=== PATIENT | female | born 1975 | race Caucasian/White ===

== ENCOUNTER → 2016-03-14 | Outpatient (CLI) | payer OTHER ==
--- NOTE | 2016-03-15 09:07 | US ---
EXAMINATION TYPE: US pelvic complete DATE OF EXAM: 03/14/2016 6:31 PM COMPARISON: NONE CLINICAL HISTORY: Irreg menses, mass on UT removed in 2009. TECHNIQUE: Transabdominal (TA) Date of LMP: 03/09/2016, EXAM MEASUREMENTS: Uterus: 8.1 x 4.3 x 3.6 cm Endometrial Stripe: 0.8 cm Right Ovary: 2.6 x 2.1 x 1.5 cm Left Ovary: 2.1 x 1.6 x 1.1 cm FINDINGS: 1. Uterus: wnl, anteverted 2. Endometrium: wnl 3. Right Ovary: follicle 4. Left Ovary: wnl Spectral, color and waveform doppler imaging shows good arterial and venous flow within the ovaries ; there is no evidence for ovarian torsion. 5. Bilateral Adnexa: wnl 6. Posterior cul-de-sac: no free fluid IMPRESSION: 1. Endometrial stripe measures 8 mm correlate with the phase of the patient's menstrual cycle. Otherw ise, no abnormality identified.
== END | disposition home or self-care (01) ==
LOC: RADUSMAIN 17:55
PROVIDERS: ATTEND Obstetrics & Gynecology
DX: N92.1 Excessive and frequent menstruation with irregular cycle (principal)
CPT/HCPCS: 76856

== ENCOUNTER 2016-09-14 11:06 | Emergency (ER) | payer OTHER ==
[2016-09-14 11:14] VITALS: TEMP 97.3
[2016-09-14] MEDS ORDERED: SODIUM CHLORIDE 0.9% 1,000 ML IV STA ×2 (11:27)
--- NOTE | 2016-09-14 11:33 | ED ---
General Adult HPI - General Chief complaint: Extremity Injury, Upper Stated complaint: ELECTROCUTION Time Seen by Provider: 09/14/16 11:19 Source: patient Mode of arrival: ambulatory Limitations: no limitations - History of Present Illness Initial comments: This 41-year-old white female presents complaining of getting an electrical shock. She apparently was part washing her deck and she was near the area where the extension cord. She apparently was pulling on this area and also touching the metal deck when she felt a shock go through her right arm and it seemed to go all the way to her left arm. She had a numbness and tingling type sensation afterward. This occurred at approximately 10 AM today. She did not lose any consciousness, exhibit any chest pain, shortness of breath, or palpitations. She complains of some mild soreness present to her right proximal arm currently. She does not think she is but is somewhat late on her menstruation. She denies any other complaints or modifying factors. - Related Data Home Medications Medication Instructions Recorded Confirmed No Known Home Medications [No 09/14/16 09/14/16 Known Home Medications] Allergies Allergy/AdvReac Type Severity Reaction Status Date / Time cephalexin [From Keflex] Allergy Unknown Verified 09/14/16 11:46 ofloxacin Allergy Unknown Verified 09/14/16 11:46 Sulfa (Sulfonamide Allergy Unknown Verified 09/14/16 11:46 Antibiotics) sulfamethoxazole Allergy Unknown Verified 09/14/16 11:46 [From Bactrim] trimethoprim [From Bactrim] Allergy Unknown Verified 09/14/16 11:46 Review of Systems ROS Statement: Those systems with pertinent positive or pertinent negative responses have been documented in the HPI. ROS Other: All systems not noted in ROS Statement are negative. Past Medical History Past Medical History: No Reported History History of Any Multi-Drug Resistant Organisms: None Reported Past Surgical History: Appendectomy Past Psychological History: No Psychological Hx Reported Smoking Status: Never smoker Past Alcohol Use History: Rare Past Drug Use History: None Reported General Exam - General Exam Comments Initial Comments: GENERAL: The patient is well nourished and well hydrated. VITAL SIGNS: Heart rate, blood pressure, respiratory rate reviewed as recorded in nurse's notes. EYES: Pupils are round and reactive. Extraocular movements are intact. No conjunctival / lid redness or swelling. ENT: No external evidence of injury, swelling, or ecchymosis. Airway is patent. Throat is clear. NECK: Nontender. No swelling or evidence of injury. No subcutaneous emphysema. Trachea is midline. No thyroid mass. HEART: Regular rate and rhythm. Good peripheral pulses. LUNGS/CHEST: Breath sounds clear and equal bilaterally. No rales, rhonchi, or wheezes. No ecchymosis, subcutaneous emphysema, or tenderness. ABDOMEN: Abdomen soft without tenderness. No palpable masses or organomegaly. No peritoneal signs. No abdominal wall swelling or ecchymosis. EXTREMITIES: There is some mild tenderness present to the right proximal arm but no evidence of swelling. Excellent range of motion. Strength is intact. Normal muscle tone and function. No thoracolumbar tenderness. NEUROLOGIC: Sensation is grossly intact. Cranial nerve exam reveals face is symmetrical, tongue is midline, speech is clear. SKIN: No abrasions or ecchymosis is noted. No induration or masses noted. There are no entrance or exit wounds noted. PSYCHIATRIC: Alert and oriented. Appropriate behavior and judgment. Limitations: no limitations Course Vital Signs 09/14/16 09/14/16 09/14/16 11:07 12:18 13:00 Temperature 97.3 F L Pulse Rate 75 69 73 Respiratory 17 18 18 Rate Blood Pressure 135/70 122/66 122/73 O2 Sat by Pulse 99 98 100 Oximetry Medical Decision Making - Medical Decision Making The patient was seen and examined. All diagnostics were reviewed. The EKG shows a normal sinus rhythm at a rate of 70. No acute ST-T wave changes are identified. The patient does receive an IV of some hydration and Toradol intravenously. She is doing quite well on recheck. She is watched on the conveyor monitor no ectopy is identified. The laboratory comes back all essentially within normal limits with a normal CK. Overall, it is felt as though she has a mild electrical injury that she is stable for discharge. She understands and agrees. Return parameters are discussed. - Lab Data Result diagrams: 09/14/16 12:10 09/14/16 12:10 Lab Results 09/14/16 09/14/16 Range/Units 12:10 12:10 WBC 5.8 (3.8-10.6) k/uL RBC 4.70 (3.80-5.40) m/uL Hgb 14.1 (11.4-16.0) gm/dL Hct 41.1 (34.0-46.0) % MCV 87.4 (80.0-100.0) fL MCH 29.9 (25.0-35.0) pg MCHC 34.2 (31.0-37.0) g/dL RDW 11.9 (11.5-15.5) % Plt Count 265 (150-450) k/uL Neutrophils % 70 % Lymphocytes % 22 % Monocytes % 5 % Eosinophils % 1 % Basophils % 1 % Neutrophils # 4.1 (1.3-7.7) k/uL Lymphocytes # 1.3 (1.0-4.8) k/uL Monocytes # 0.3 (0-1.0) k/uL Eosinophils # 0.0 (0-0.7) k/uL Basophils # 0.0 (0-0.2) k/uL Sodium 142 (137-145) mmol/L Potassium 3.4 L (3.5-5.1) mmol/L Chloride 104 (98-107) mmol/L Carbon Dioxide 25 (22-30) mmol/L Anion Gap 13 mmol/L BUN 14 (7-17) mg/dL Creatinine 0.80 (0.52-1.04) mg/dL Est GFR (MDRD) Af Amer >60 (>60 ml/min/1.73 sqM) Est GFR (MDRD) Non-Af >60 (>60 ml/min/1.73 sqM) Glucose 77 (74-99) mg/dL Calcium 9.6 (8.4-10.2) mg/dL Creatine Kinase 86 (30-135) U/L HCG, Qual Not Detected Disposition Clinical Impression: Electrical injuries, Right arm pain Disposition: HOME SELF-CARE Condition: Good Instructions: Arm Pain (ED) Additional Instructions: We saw you today for an electrical injury. Please return if symptoms worsen as discussed. Please use Motrin and/or Tylenol if needed for pain. Referrals: Dara Rojas III, MD [Primary Care Provider] - 1-2 days Time of Disposition: 13:13
[2016-09-14] MEDS: KETOROLAC 30 MG/ML 1 ML VIAL IVP STA ×2 (12:15→12:59)
[2016-09-14 12:19] VITALS: RESP 18
[2016-09-14 12:32] LABS: Basophils % (A) 1 %; CH 29.8; CHCM 34.1; Eosinophils % (A) 1 %; HCT 41.1 % (34.0-46.0); HDW 2.48; HGB 14.1 gm/dL (11.4-16.0); Luc # (Auto) 0.12; Luc % (Auto) 2; Lymphocytes # (A) 1.3 k/uL (1.0-4.8); Lymphocytes % (A) 22 %; MCH 29.9 pg (25.0-35.0); MCHC 34.2 g/dL (31.0-37.0); MCV 87.4 fL (80.0-100.0); Mean Platelet Volume 6.7; Monocytes # (A) 0.3 k/uL (0-1.0); Monocytes % (A) 5 %; Neutrophils # (A) 4.1 k/uL (1.3-7.7); Neutrophils % (A) 70 %; RDW 11.9 % (11.5-15.5); WBC 5.8 k/uL (3.8-10.6); WBC (Perox) 5.85
[2016-09-14 12:43] LABS: Anion Gap 13 mmol/L; Blood Urea Nitrogen 14 mg/dL (7-17); Calcium 9.6 mg/dL (8.4-10.2); Carbon Dioxide 25 mmol/L (22-30); Chloride 104 mmol/L (98-107); Creatine Kinase 86 U/L (30-135); Glucose 77 mg/dL (74-99); Non-African American GFR(MDRD) >60 (>60 ml/min/1.73 sqM); Potassium 3.4 mmol/L (3.5-5.1); Sodium 142 mmol/L (137-145)
[2016-09-14 12:50] LABS: HCG,Qualitative Serum Not Detected
[2016-09-14 13:01] VITALS: BP 122/73; PULSE 73
== END 2016-09-14 13:30 | disposition home or self-care (01) ==
LOC: EC 11:06
DX: T75.4XXA Electrocution, initial encounter (principal); Z88.1 Allergy status to other antibiotic agents; Z88.2 Allergy status to sulfonamides; Z53.20 Procedure and treatment not carried out because of patient's decision for unspecified reasons; Y93.89 Activity, other specified
CPT/HCPCS: 36415; 80048; 82550; 84703; 85025; 93005; 96360; 99283

== ENCOUNTER → 2017-06-02 | Outpatient (CLI) | payer OTHER ==
--- NOTE | 2017-06-02 15:03 | US ---
EXAMINATION TYPE: US thyroid st tissue head/neck DATE OF EXAM: 06/02/2017 COMPARISON: NONE CLINICAL HISTORY: R94.6 Abnormal results of thyroid function study. Fatigue, abnormal thyroid functio n, thyroid feels enlarged GLAND SIZE: Right Lobe: 5.1 x 1.1 x 1.5 cm Overall Parenchyma: homogenous Left Lobe: 4.3 x 1.1 x 1.3 cm Overall Parenchyma: homogeneous Isthmus Thickness: 0.3 cm NODULES RIGHT: # of nodules measured on right: 0 LEFT: # of nodules measured on left: 0 ISTHMUS: # of nodules measured in the isthmus: 0 Bilateral neck scanned, no evidence of lymphadenopathy. No evidence of a distinct thyroid nodule at this time IMPRESSION: Unremarkable study
== END | disposition home or self-care (01) ==
LOC: RADUSWWP 13:36
PROVIDERS: ATTEND Family Medicine
DX: R94.6 Abnormal results of thyroid function studies (principal); R53.83 Other fatigue
CPT/HCPCS: 76536

== ENCOUNTER → 2017-06-02 | Outpatient (CLI) | payer OTHER ==
--- NOTE | 2017-06-06 07:58 | MM ---
Reason for exam: screening (asymptomatic). Last mammogram was performed 2 years and 6 months ago. History: Family history of breast cancer in maternal aunt at age 58. Physical Findings: A clinical breast exam by your physician is recommended on an annual basis and results should be correlated with mammographic findings. MG 3D Screening Mammo W/Cad Bilateral CC and MLO view(s) were taken. Prior study comparison: December 04, 2014, bilateral MG screening mammo w CAD. May 13, 2008, bilateral diagnostic digital mammog. The breast tissue is heterogeneously dense. This may lower the sensitivity of mammography. 1cm nodularity seen on 3D images approximately 1 o'clock right breast appears new, larger. Possible cyst. Some additional underlying nodularity is suggested on 3D images. ASSESSMENT: Incomplete: need additional imaging evaluation, BI-RAD 0 RECOMMENDATION: Ultrasound of the right breast. [facility] will attempt to contact patient to return for ultrasound.
== END | disposition home or self-care (01) ==
LOC: RADMAMWWP 13:31
PROVIDERS: ATTEND Obstetrics & Gynecology
DX: Z12.31 Encounter for screening mammogram for malignant neoplasm of breast (principal); Z80.3 Family history of malignant neoplasm of breast
CPT/HCPCS: 77063; 77067

== ENCOUNTER → 2017-06-16 | Outpatient (CLI) | payer OTHER ==
--- NOTE | 2017-06-19 08:07 | USB ---
Reason for exam: additional evaluation requested from abnormal screening. History: Family history of breast cancer in maternal aunt at age 58. Physical Findings: Nurse Summary: 0.5cm nodule right breast 11 o'clock (nurse michael). US Breast Workup RT Right breast ultrasound includes all four quadrants, the retroareolar region and axilla. Finding demonstrates a 0.7 x 0.4 x 0.7cm oval, cystic lesion at 11 o'clock. These results were verbally communicated with the patient and result sheet given to the patient on 06/16/17. ASSESSMENT: Incomplete: need additional imaging evaluation, BI-RAD 0 RECOMMENDATION: Special view mammogram of the right breast.
--- NOTE | 2017-06-19 08:08 | MM ---
Reason for exam: additional evaluation requested from abnormal screening. Last mammogram was performed less than 1 month ago. History: Family history of breast cancer in maternal aunt at age 58. MG 3D Work Up W/Cad RT Spot compression CC, spot compression MLO, and ML view(s) were taken of the right breast. Prior study comparison: June 02, 2017, bilateral MG 3d screening mammo w/cad. December 04, 2014, bilateral MG screening mammo w CAD. There is no discrete abnormality including area of concern. These results were verbally communicated with the patient and result sheet given to the patient on 06/16/17. ASSESSMENT: Benign, BI-RAD 2 RECOMMENDATION: Return to routine screening mammogram schedule for both breasts.
== END | disposition home or self-care (01) ==
LOC: RADUSWWP 14:05
PROVIDERS: ATTEND Obstetrics & Gynecology
DX: R92.8 Other abnormal and inconclusive findings on diagnostic imaging of breast (principal); Z80.3 Family history of malignant neoplasm of breast
CPT/HCPCS: 77065; 76641; G0279

== ENCOUNTER → 2018-06-13 | Outpatient (CLI) | payer OTHER ==
--- NOTE | 2018-06-15 09:57 | MM ---
Reason for exam: screening (asymptomatic). Last mammogram was performed 1 year ago. History: Family history of breast cancer in maternal aunt at age 58. Physical Findings: A clinical breast exam by your physician is recommended on an annual basis and results should be correlated with mammographic findings. MG 3D Screening Mammo W/Cad Bilateral CC and MLO view(s) were taken. Prior study comparison: June 16, 2017, right breast MG 3d work up w/cad RT. June 02, 2017, bilateral MG 3d screening mammo w/cad. The breast tissue is extremely dense which could obscure a lesion on mammography. No significant changes when compared with prior studies. ASSESSMENT: Benign, BI-RAD 2 RECOMMENDATION: Routine screening mammogram of both breasts in 1 year.
== END | disposition home or self-care (01) ==
LOC: RADMAMWWP 16:17
PROVIDERS: ATTEND Obstetrics & Gynecology
DX: Z12.31 Encounter for screening mammogram for malignant neoplasm of breast (principal)
CPT/HCPCS: 77063; 77067

== ENCOUNTER → 2018-12-06 | Outpatient (CLI) | payer BC ==
--- NOTE | 2018-12-06 10:57 | US ---
EXAMINATION TYPE: US pelvic complete DATE OF EXAM: 12/06/2018 COMPARISON: None CLINICAL HISTORY: R10.9 abdominal pain R10.2 pelvic pain. Generalized discomfort TECHNIQUE: Transabdominal (TA). Date of LMP: Perimenopause, EXAM MEASUREMENTS: Uterus: 8.6 x 4.4 x 3.6 cm Endometrial Stripe: 0.6 cm Right Ovary: 2.7 x 1.7 x 1.2 cm Left Ovary: 1.9 x 1.6 x 1.7 cm 1. Uterus: Anteverted wnl 2. Endometrium: wnl 3. Right Ovary: wnl 4. Left Ovary: wnl 5. Bilateral Adnexa: wnl 6. Posterior cul-de-sac: No free fluid IMPRESSION: Unremarkable pelvic ultrasound.
--- NOTE | 2018-12-06 11:12 | US ---
EXAMINATION TYPE: US abdomen complete DATE OF EXAM: 12/06/2018 COMPARISON: None CLINICAL HISTORY: R10.9 abdominal pain R10.2 pelvic pain. Generalized discomfort EXAM MEASUREMENTS: Liver Length: 11.8 cm Gallbladder Wall: 0.2 cm CBD: 0.3 cm Spleen: 9.7 cm Right Kidney: 9.3 x 4.1 x 3.6 cm Left Kidney: 8.6 x 3.5 x 5.1 cm Limited visualization due to overlying bowel gas Pancreas: wnl Liver: wnl Gallbladder: wnl Evidence for sonographic Cortez's sign: neg CBD: wnl Spleen: wnl as visualized, limited visualization due to gas Right Kidney: wnl Left Kidney: wnl Upper IVC: wnl Abd Aorta: wnl The liver is homogenous. The intrahepatic portion of the IVC and proximal abdominal aorta are within normal limits. There is no evidence of cholelithiasis. Common bile duct is unremarkable. The visu alized portions of the pancreas are homogenous. The visualized portions of the spleen are unremarkab le. Kidneys are symmetric and free of hydronephrosis. No renal lesions are seen. IMPRESSION: Unremarkable abdominal ultrasound other than limited evaluation of the spleen and pancrea s due to overlying bowel gas. No sonographic evidence of cholelithiasis nor acute cholecystitis.
== END | disposition home or self-care (01) ==
LOC: RADUSWWP 08:50
PROVIDERS: ATTEND Nurse Practitioner Family
DX: N93.9 Abnormal uterine and vaginal bleeding, unspecified (principal); R10.9 Unspecified abdominal pain; R10.2 Pelvic and perineal pain
CPT/HCPCS: 76700; 76856

== ENCOUNTER → 2020-01-28 | Outpatient (CLI) | payer BC ==
--- NOTE | 2020-01-29 13:04 | MM ---
Reason for exam: screening (asymptomatic). Last mammogram was performed 1 year and 7 months ago. History: Family history of breast cancer in maternal aunt at age 58. Physical Findings: A clinical breast exam by your physician is recommended on an annual basis and results should be correlated with mammographic findings. MG 3D Screening Mammo W/Cad Bilateral CC, MLO, and XCCL view(s) were taken. Prior study comparison: June 13, 2018, bilateral MG 3d screening mammo w/cad. June 16, 2017, right breast MG 3d work up w/cad RT. The breast tissue is extremely dense which could obscure a lesion on mammography. There is no discrete abnormality. ASSESSMENT: Negative, BI-RAD 1 RECOMMENDATION: Routine screening mammogram of both breasts in 1 year.
== END | disposition home or self-care (01) ==
LOC: RADMAMWWP 16:18
PROVIDERS: ATTEND Obstetrics & Gynecology
DX: Z12.31 Encounter for screening mammogram for malignant neoplasm of breast (principal)
CPT/HCPCS: 77063; 77067

== ENCOUNTER → 2020-03-23 | Outpatient (CLI) | payer BC ==
--- NOTE | 2020-04-01 12:06 | EM ---
EVENT MONITOR Patient was monitored between the and March. Baseline rhythm is sinus mechanism. There was single PVCs. No evidence of atrial fibrillation was noted. No episode of ventricular tachycardia or pauses were noted. JENNIE / ANDREAN: [id number] /
== END | disposition home or self-care (01) ==
LOC: RADECHMAIN 11:51
PROVIDERS: ATTEND Family Medicine
DX: I49.3 Ventricular premature depolarization (principal)
CPT/HCPCS: 93270

== ENCOUNTER → 2021-02-24 | Outpatient (CLI) | payer BC ==
--- NOTE | 2021-03-01 13:38 | MM ---
Reason for exam: screening (asymptomatic). Last mammogram was performed 1 year and 1 month ago. History: Patient is postmenopausal. Family history of breast cancer in maternal aunt at age 58. Physical Findings: A clinical breast exam by your physician is recommended on an annual basis and results should be correlated with mammographic findings. MG 3D Screening Mammo W/Cad Bilateral CC and MLO view(s) were taken. Prior study comparison: June 13, 2018, bilateral MG 3d screening mammo w/cad. June 02, 2017, bilateral MG 3d screening mammo w/cad. December 04, 2014, bilateral MG screening mammo w CAD. Finding: There are indeterminate calcifications in the upper outer quadrant of the left breast. Asymmetric breast tissue in the right upper outer quadrant, 6cm from the nipple. New finding since June 13, 2018, June 02, 2017, and December 04, 2014. ASSESSMENT: Incomplete: need additional imaging evaluation, BI-RAD 0 RECOMMENDATION: Special view mammogram of the left breast. Ultrasound of the right breast. [facility] will attempt to contact patient to return for supplemental views and ultrasound.
== END | disposition home or self-care (01) ==
LOC: RADMAMWWP 08:13
PROVIDERS: ATTEND Obstetrics & Gynecology
DX: Z12.31 Encounter for screening mammogram for malignant neoplasm of breast (principal); Z78.0 Asymptomatic menopausal state; Z80.3 Family history of malignant neoplasm of breast
CPT/HCPCS: 77063; 77067

== ENCOUNTER → 2021-03-08 | Outpatient (CLI) | payer BC ==
--- NOTE | 2021-03-08 09:26 | MM ---
Reason for exam: additional evaluation requested from abnormal screening. Last mammogram was performed less than 1 month ago. History: Patient is postmenopausal. Family history of breast cancer in maternal aunt at age 58. Physical Findings: Nurse Summary: 0.5cm nodule in the right breast at 12 o'clock (nurse ms). MG Work Up Mamm w CAD LT LM with magnification and XCCL view(s) were taken of the left breast. Prior study comparison: March 01, 2021, bilateral MG 3d screening mammo w/cad. January 28, 2020, bilateral MG 3d screening mammo w/cad. The breast tissue is extremely dense which could obscure a lesion on mammography. Finding: There is a 3mm heterogeneous, grouped/clustered calcifications in the upper outer quadrant, middle position of the left breast. These results were verbally communicated with the patient and result sheet given to the patient on 03/08/21. ASSESSMENT: Suspicious, BI-RAD 4 RECOMMENDATION: Stereotactic core biopsy of the left breast. Called Dr. Vargas's office with mammographic findings and has scheduled an appointment for the patient for 03/26/21 at 7:[address] Matamoros. Biposy scheduled for 03/26/21 at 8:00. PRELIMINARY REPORT CALLED AND FAXED TO DR. MATAMOROS ON 03/08/21.
--- NOTE | 2021-03-08 09:27 | USB ---
Reason for exam: additional evaluation requested from abnormal screening. History: Patient is postmenopausal. Family history of breast cancer in maternal aunt at age 58. US Breast Workup Limited RT Right limited breast ultrasound including focal area of concern, retroareolar and axilla demonstrates no cystic or solid lesion seen. These results were verbally communicated with the patient and result sheet given to the patient on 03/08/21. ASSESSMENT: Negative, BI-RAD 1 RECOMMENDATION: Return to routine screening mammogram schedule for the right breast.
== END | disposition home or self-care (01) ==
LOC: RADMAMWWP 07:28
PROVIDERS: ATTEND Obstetrics & Gynecology
DX: R92.1 Mammographic calcification found on diagnostic imaging of breast (principal); Z80.3 Family history of malignant neoplasm of breast; Z78.0 Asymptomatic menopausal state
CPT/HCPCS: 77065

== ENCOUNTER → 2021-03-26 | Day surgery (SDC) | payer BC ==
[2021-03-26 07:31] VITALS: RESP 16
--- NOTE | 2021-03-26 08:18 | P.GSHP ---
History of Present Illness H&P Date: 03/26/21 Chief Complaint: Abnormal mammogram Kaur is a 46-year-old female who underwent a bilateral screening mammogram on [id number] [id number]. Indeterminate calcifications were noted in the upper outer quadrant of the left breast. Asymmetric tissue was noted in the right upper outer quadrant. An ultrasound of the right breast was recommended this was performed on 1322 this was felt to be negative BIRADS 1 return to routine screening of the right breast was recommended. In the left breast diagnostic mammogram was performed on 1322 there was a 3 mm heterogeneous group cluster calcifications in the upper outer quadrant for which stereotactic core biopsy was recommended. She was seen in consultation for Dr. Vargas. The patient did note some nodularity in the right breast and has had cyst in that breast in the past. She She has not had any biopsies in the past. She did not note any lesions in the left breast. She had mastitis when she breast fed 15 years ago. Caffiene: none nicotine: none chocolate: occasional Family History: maternal aunt: breast cancer maternal grandmother: skin cancer maternal uncle: skin cancer Hormonal History: menarche: 13 , breast fed: yes, age at first : 25 menopausal now LMP July 2019 BCP: none hormones: none Surgical History: appy uterine biopsy Medical History: none Social History: nicotine: none alcohol: occasional drugs: none - Constitutional Constitutional: Denies chills, Denies fever - EENT Eyes: denies blurred vision, denies pain Ears: deny: decreased hearing, tinnitus Ears, nose, mouth and throat: Reports headache, Denies sore throat - Breasts Breasts: bilateral: as per HPI - Cardiovascular Cardiovascular: Denies chest pain, Denies shortness of breath - Respiratory Respiratory: Denies cough, Denies 7 - Gastrointestinal Gastrointestinal: Denies abdominal pain, Denies diarrhea, Denies nausea, Denies vomiting - Genitourinary (Female) Genitourinary: Denies dysuria, Denies hematuria - Menstruation Menstruation: Reports postmenopausal - Musculoskeletal Musculoskeletal: Denies myalgias - Integumentary Integumentary: Denies pruritus, Denies rash - Neurological Neurological: Denies numbness, Denies weakness - Psychiatric Psychiatric: Denies anxiety, Denies depression - Endocrine Endocrine: Reports weight change, Denies fatigue - Hematologic/Lymphatic Comment: none - Allergic/Immunologic Allergic/Immunologic: Reports as per HPI, Reports seasonal allergies Past Medical History Past Medical History: No Reported History History of Any Multi-Drug Resistant Organisms: None Reported Past Surgical History: Appendectomy Additional Past Anesthesia/Blood Transfusion Reaction / Comment(s): difficulty waking up after surgery Past Psychological History: No Psychological Hx Reported Smoking Status: Never smoker Past Alcohol Use History: Rare Past Drug Use History: None Reported Medications and Allergies Home Medications Medication Instructions Recorded Confirmed Type No Known Home Medications 09/14/16 03/26/21 History Allergies Allergy/AdvReac Type Severity Reaction Status Date / Time cephalexin [From Keflex] Allergy Unknown Verified 03/26/21 07:21 ofloxacin Allergy Unknown Verified 03/26/21 07:21 Sulfa (Sulfonamide Allergy Unknown Verified 03/26/21 07:21 Antibiotics) sulfamethoxazole Allergy Unknown Verified 03/26/21 07:21 [From Bactrim] trimethoprim [From Bactrim] Allergy Unknown Verified 03/26/21 07:21 nitrofurantoin AdvReac Unknown Verified 03/26/21 07:21 [From Macrobid] Surgical - Exam Vital Signs Temp Pulse Resp BP 97.7 F 88 16 124/85 03/26/21 07:21 03/26/21 07:21 03/26/21 07:21 03/26/21 07:21 BMI: 22 - General moderate distress - Eyes normal ocular movement - Neck trachea midline - Respiratory normal respiratory effort - Cardiovascular Rhythm: regular Heart Sounds: normal: S1, S2 - Abdomen Abdomen: soft, non tender, no guarding, no rigid, no rebound - Integumentary normal turgor - Neurologic no disoriented, no combative - Musculoskeletal normal gait - Psychiatric oriented to time, oriented to person, oriented to place, speech is normal, memory intact Breast Exam: BRA: 34B inspection: Bilateral grade 2 ptosis Palpation: Right breast: Multi-positional exam no dominant masses or nodules of concern Right axilla: No adenopathy of concern Left breast: Multi-positional exam no dominant masses or nodules of concern Left axilla: No adenopathy of concern Results Mammogram reviewed with Dr. Quezada Assessment and Plan Assessment: Impression: Radiographic abnormality left breast/microcalcifications upper outer quadrant Dense breast Plan: Stereotactic core biopsy left breast Follow-up one week Risk and benefits of the procedure were discussed with the patient. Secondary to her dense breast and faint microcalcifications there may be difficulty in targeting the lesion. Additionally if the lesion would be discordant and the possibility of additional biopsy is considered. Risks also include but are not limited to bleeding, infection, reaction to the anesthetic. The patient understands and wishes to proceed. Alternatives such as watchful waiting or resection in the operating room considered but not recommended. Cc: Dr. Vargas
[2021-03-26 09:05] VITALS: BP 114/73; PULSE 69; TEMP 98.1
--- NOTE | 2021-03-26 09:11 | P.PCN ---
Date of Procedure: 03/26/21 Preoperative Diagnosis: Microcalcifications of concern upper outer quadrant left breast Postoperative Diagnosis: Same Procedure(s) Performed: Left breast stereotactic core biopsy Anesthesia: local Surgeon: Tere Matamoros Pathology: other (Left breast tissue/radiograph reveals calcifications of concern are sampled) Condition: stable Disposition: same day Indications for Procedure: Microcalcifications of concern left breast Operative Findings: Radiographic specimen reveals microcalcifications of concern have been sampled Description of Procedure: The patient is a 46-year-old white female underwent routine screening mammogram noted to have microcalcifications of concern in the left breast in the upper outer quadrant. Stereotactic core biopsy was recommended. Risk and benefits of the procedure were discussed with the patient. Alternatives such as watchful waiting or resection in the operating room were considered but not recommended. The patient wished to proceed with stereotactic core biopsy. The patient was taken to the stereotactic core biopsy room. She was positioned prone on the low rad table. A crew director film was obtained. A CC from above approach was utilized. The microcalcifications of concern were identified . These were targeted. The breast was prepped using Betadine. 20 mL of 1% lidocaine were used to anesthetize the area of concern. A 9-gauge vacuum- assisted core rotating biopsy needle was driven to the correct coordinates. A prefire film was obtained. The needle was noted to be in the correct location. The needle was fired. Post fire film was obtained. The needle was noted to be in the correct location. 24 core biopsy specimens were obtained. The area of biopsy was lavaged. Radiograph of the specimen revealed the microcalcifications of concern had been sampled. A secure vasu top hat clip was placed. Radiograph revealed the clip to be in the correct location. The patient tolerated the procedure in stable condition. The specimen was sent to pathology. The patient will follow-up with Dr. Salomon next week.
--- NOTE | 2021-03-26 10:13 | MM ---
The patient is a 46-year-old white female underwent routine screening mammogram noted to have microcalcifications of concern in the left breast in the upper outer quadrant. Stereotactic core biopsy was recommended. Risk and benefits of the procedure were discussed with the patient. Alternatives such as watchful waiting or resection in the operating room were considered but not recommended. The patient wished to proceed with stereotactic core biopsy. The patient was taken to the stereotactic core biopsy room. She was positioned prone on the lo-rad table. A mens locker room attendant film was obtained. A CC from above approach was utilized. The microcalcifications of concern were identified. These were targeted. The breast was prepped using Betadine. 20 mL of 1% lidocaine were used to anesthetize the area of concern. A 9-gauge vacuum- assisted core rotating biopsy needle was driven to the correct coordinates. A prefire film was obtained. The needle was noted to be in the correct location. The needle was fired. Post fire film was obtained. The needle was noted to be in the correct location. 24 core biopsy specimens were obtained. The area of biopsy was lavaged. Radiograph of the specimen revealed the microcalcifications of concern had been sampled. A secure vasu top hat clip was placed. Radiograph revealed the clip to be in the correct location. The patient tolerated the procedure in stable condition. The specimen was sent to pathology. The patient will follow-up with Dr. Salomon next week. CHUCK
== END ==
LOC: RADMAMWWP 07:01
PROVIDERS: ATTEND Surgery
DX: N60.12 Diffuse cystic mastopathy of left breast (principal); R92.8 Other abnormal and inconclusive findings on diagnostic imaging of breast; R92.0 Mammographic microcalcification found on diagnostic imaging of breast; Z80.3 Family history of malignant neoplasm of breast; Z80.8 Family history of malignant neoplasm of other organs or systems; Z78.0 Asymptomatic menopausal state; Z90.49 Acquired absence of other specified parts of digestive tract; R26.2 Difficulty in walking, not elsewhere classified; Z88.1 Allergy status to other antibiotic agents; Z88.2 Allergy status to sulfonamides
CPT/HCPCS: 88305; 19081; A4648; J2001

== ENCOUNTER → 2021-04-01 | Outpatient (CLI) | payer BC ==
[2021-04-01 14:29] VITALS: BP 147/77; PULSE 110; RESP 18; TEMP 97.6
--- NOTE | 2021-04-01 14:42 | P.PN ---
Subjective Progress Note Date: 04/01/21 Principal diagnosis: fibrocystic breast changes on stero-biopsy Kaur is a 46 year old white female status-post a left breast stero- biopsy on 03-26-21 which was felt to be benign concordant. It revealed fibrocystic disease with calcifications present. The patient . The patient tolerated the procedure without difficulty. Patient is seen with her . Pathology results have been reviewed. Objective - Vital Signs Vital signs: Vital Signs Temp 97.6 F 04/01/21 14:27 Pulse 110 H 04/01/21 14:27 Resp 18 04/01/21 14:27 BP 147/77 04/01/21 14:27 Pulse Ox 93 L 04/01/21 14:27 Intake & Output 03/31/21 04/01/21 04/01/21 18:59 06:59 18:59 Weight 54.431 kg - Constitutional General appearance: Present: cooperative - EENT Eyes: Present: EOMI ENT: Present: hearing grossly normal - Neck Neck: Present: normal ROM - Respiratory Respiratory: bilateral: CTA - Cardiovascular Heart sounds: normal: S1, S2 - Integumentary Integumentary Comment(s): Biopsy site left breast clean and dry, mild ecchymosis No evidence of infection or hematoma - Musculoskeletal Musculoskeletal: Present: gait normal - Psychiatric Psychiatric: Present: A&O x's 3, appropriate affect, intact judgment & insight Assessment and Plan Assessment: Impression: Fibrocystic breast changes on stereotactic core biopsy left breast Plan: Left breast mammogram in 6 months with physician exam at that time CC: Dr. Rojas
== END ==
LOC: WWCWWP 14:20
PROVIDERS: ATTEND Surgery
DX: N60.12 Diffuse cystic mastopathy of left breast (principal); Z88.1 Allergy status to other antibiotic agents; Z88.2 Allergy status to sulfonamides

== ENCOUNTER → 2021-09-24 | Outpatient (CLI) | payer BC ==
--- NOTE | 2021-09-24 11:38 | MM ---
Reason for Exam: Follow-up at short interval from prior study. Last screening mammogram was performed 7 month(s) ago. Patient History: Menarche at age 15. First Full-Term at age 24. Postmenopausal. 03/26/2021, Benign Core Biopsy on the left side. Maternal aunt had breast cancer, age 58. Risk Values: Therese 5 year model risk: 1.2%. NCI Lifetime model risk: 11.3%. Prior Study Comparison: 01/28/2020 Bilateral Screening Mammogram, [facility]. 03/01/2021 Bilateral Screening Mammogram, [facility]. 03/08/2021 Left Diagnostic Mammogram, [facility]. Tissue Density: Left: The breast tissue is heterogeneously dense. This may lower the sensitivity of mammography. Findings: Analyzed By CAD. No mass or suspicious calcifications. Overall Assessment: Benign, BI-RAD 2 Management: Screening Mammogram of both breasts in 6 months. A clinical breast exam by your physician is recommended on an annual basis and results should be correlated with mammographic findings. This exam should not preclude additional follow-up of suspicious palpable abnormalities. Results were given to the patient verbally at the time of exam. Electronically signed and approved by: Matt Lizama M.D. Radiologis
== END | disposition home or self-care (01) ==
LOC: RADMAMWWP 11:05
PROVIDERS: ATTEND Surgery
DX: R92.8 Other abnormal and inconclusive findings on diagnostic imaging of breast (principal); Z78.0 Asymptomatic menopausal state; Z80.3 Family history of malignant neoplasm of breast
CPT/HCPCS: 77061; 77065

== ENCOUNTER → 2021-09-30 | Outpatient (CLI) | payer BC ==
[2021-09-30 14:43] VITALS: BP 138/81; PULSE 53; RESP 17; TEMP 98.6
--- NOTE | 2021-09-30 15:01 | P.PN ---
Subjective Progress Note Date: 09/30/21 Principal diagnosis: fibrocystic breast Kaur is a 46-year-old female who underwent a bilateral screening mammogram on [id number]. Indeterminate calcifications were noted in the upper outer quadrant of the left breast. Asymmetric tissue was noted in the right upper outer quadrant. An ultrasound of the right breast was recommended this was performed on 1322 this was felt to be negative BIRADS 1 return to routine screening of the right breast was recommended. In the left breast diagnostic mammogram was performed on 132 there was a 3 mm heterogeneous group cluster calcifications in the upper outer quadrant for which stereotactic core biopsy was recommended. The patient did note some nodularity in the right breast and has had cyst in that breast in the past. She She underwent a stero biopsy on 03-26-21 which was benign concordant. A left breast mammogram was done on 09-24-21 which was BIRAD 2. She has not noted any new lumps masses or nodules of concern. Caffiene: none nicotine: none chocolate: occasional Family History: maternal aunt: breast cancer maternal grandmother: skin cancer maternal uncle: skin cancer Hormonal History: menarche: 13 , breast fed: yes, age at first : 25 menopausal now LMP July 2019 BCP: none hormones: none Surgical History: appy uterine biopsy Medical History: none Social History: nicotine: none alcohol: occasional drugs: none - Constitutional Constitutional: Denies chills, Denies fever - EENT Eyes: denies blurred vision, denies pain Ears: deny: decreased hearing, tinnitus Ears, nose, mouth and throat: Reports headache, Denies sore throat - Breasts Breasts: bilateral: as per HPI - Cardiovascular Cardiovascular: Denies chest pain, Denies shortness of breath - Respiratory Respiratory: Denies cough - Gastrointestinal Gastrointestinal: Denies abdominal pain, Denies diarrhea, Denies nausea, Denies vomiting - Genitourinary (Female) Genitourinary: Denies dysuria, Denies hematuria - Menstruation Menstruation: Reports postmenopausal - Musculoskeletal Musculoskeletal: Denies myalgias - Integumentary Integumentary: Denies pruritus, Denies rash - Neurological Neurological: Denies numbness, Denies weakness - Psychiatric Psychiatric: Denies anxiety, Denies depression - Endocrine Endocrine: Reports weight change, Denies fatigue - Hematologic/Lymphatic Comment: none - Allergic/Immunologic Allergic/Immunologic: Reports as per HPI, Reports seasonal allergies Objective - Vital Signs Vital signs: Vital Signs Temp 98.6 F 09/30/21 14:41 Pulse 53 L 09/30/21 14:41 Resp 17 09/30/21 14:41 BP 138/81 09/30/21 14:41 Pulse Ox 99 09/30/21 14:41 FiO2 Intake & Output 09/29/21 09/30/21 09/30/21 18:59 06:59 18:59 Weight 56.699 kg - Exam BMI: 22.9 - Constitutional General appearance: Present: cooperative - EENT Eyes: Present: EOMI ENT: Present: hearing grossly normal - Neck Neck: Present: normal ROM - Respiratory Respiratory: bilateral: CTA - Cardiovascular Heart sounds: normal: S1, S2 - Gastrointestinal General gastrointestinal: Present: soft - Integumentary Integumentary: Present: normal turgor - Musculoskeletal Musculoskeletal: Present: gait normal - Psychiatric Psychiatric: Present: A&O x's 3, appropriate affect, intact judgment & insight - Additional findings Additional findings: Breast Exam: BRA: 34B inspection: small Amount of dimpling at the left breast biopsy site Palpation: Right breast: Multi-positional exam fibrocystic changes no dominant masses or nodules of concern Right axilla: No adenopathy of concern Left breast: Multi-positional exam fibrocystic changes no dominant masses or nodules of concern, small amount of dimpling at the needle biopsy site this is not worrisome Left axilla: No adenopathy of concern Assessment and Plan Assessment: Fashion: Fibrocystic breast changes Plan: Bilateral mammogram 6 months with physician exam at that time CC: Dr. Vargas
== END ==
LOC: WWCWWP 14:34
PROVIDERS: ATTEND Surgery
DX: N60.11 Diffuse cystic mastopathy of right breast (principal); N60.12 Diffuse cystic mastopathy of left breast; Z88.1 Allergy status to other antibiotic agents; Z88.2 Allergy status to sulfonamides

== ENCOUNTER → 2022-03-28 | Outpatient (CLI) | payer BC ==
--- NOTE | 2022-03-29 08:39 | MM ---
Reason for Exam: Screening (asymptomatic). Last mammogram was performed 1 year(s) and 1 month(s) ago. Patient History: Menarche at age 15. First Full-Term at age 24. Postmenopausal. 03/26/2021, Benign Core Biopsy on the left side. Maternal aunt had breast cancer, age 58. Risk Values: Therese 5 year model risk: 1.2%. NCI Lifetime model risk: 11.0%. Prior Study Comparison: 03/01/2021 Bilateral Screening Mammogram, [facility]. 03/08/2021 Left Diagnostic Mammogram, [facility]. 09/24/2021 Left MG 3D diag mammo w/cad LT, [facility]. Tissue Density: The breast tissue is heterogeneously dense. This may lower the sensitivity of mammography. Findings: Analyzed By CAD. There is no suspicious group of microcalcifications or new suspicious mass in either breast. Overall Assessment: Benign, BI-RAD 2 Management: Screening Mammogram of both breasts in 1 year. A clinical breast exam by your physician is recommended on an annual basis and results should be correlated with mammographic findings. Electronically signed and approved by: Matt Lizama M.D. Radiologis
== END | disposition home or self-care (01) ==
LOC: RADMAMWWP 10:00
PROVIDERS: ATTEND Surgery
DX: Z12.31 Encounter for screening mammogram for malignant neoplasm of breast (principal); Z78.0 Asymptomatic menopausal state; Z80.3 Family history of malignant neoplasm of breast
CPT/HCPCS: 77063; 77067

== ENCOUNTER → 2022-04-01 | Outpatient (CLI) | payer BC ==
[2022-04-01 13:50] VITALS: BP 132/89; PULSE 84; RESP 16; TEMP 97.5
--- NOTE | 2022-04-01 14:02 | P.PN ---
Subjective Progress Note Date: 04/01/22 Principal diagnosis: fibrocystic breast fibrocystic breast Kaur is a 46-year-old female who underwent a bilateral screening mammogram on [id number]. Indeterminate calcifications were noted in the upper outer quadrant of the left breast. Asymmetric tissue was noted in the right upper outer quadrant. An ultrasound of the right breast was recommended this was performed on 1322 this was felt to be negative BIRADS 1 return to routine screening of the right breast was recommended. In the left breast diagnostic mammogram was performed on 132 there was a 3 mm heterogeneous group cluster calcifications in the upper outer quadrant for which stereotactic core biopsy w as recommended. The patient did note some nodularity in the right breast and has had cyst in that breast in the past. She She underwent a stero biopsy on 03-26-21 which was benign concordant. A left breast mammogram was done on 09-24-21 which was BIRAD 2. She has not noted any new lumps masses or nodules of concern. She had a bilateral mammogram on 03-28-22 which was BIRAD 2. The patient does not feel any lumps masses or nodules of concern. Caffiene: none nicotine: none chocolate: occasional Family History: maternal aunt: breast cancer maternal grandmother: skin cancer maternal uncle: skin cancer Hormonal History: menarche: 13 , breast fed: yes, age at first : 25 menopausal now LMP July 2019 BCP: none hormones: none Surgical History: appy uterine biopsy Medical History: none Social History: nicotine: none alcohol: occasional drugs: none - Constitutional Constitutional: Denies chills, Denies fever - EENT Eyes: denies blurred vision, denies pain Ears: deny: decreased hearing, tinnitus Ears, nose, mouth and throat: Reports headache, Denies sore throat - Breasts Breasts: bilateral: as per HPI - Cardiovascular Cardiovascular: Denies chest pain, Denies shortness of breath - Respiratory Respiratory: Denies cough - Gastrointestinal Gastrointestinal: Denies abdominal pain, Denies diarrhea, Denies nausea, Denies vomiting - Genitourinary (Female) Genitourinary: Denies dysuria, Denies hematuria - Menstruation Menstruation: Reports postmenopausal - Musculoskeletal Musculoskeletal: Denies myalgias - Integumentary Integumentary: Denies pruritus, Denies rash - Neurological Neurological: Denies numbness, Denies weakness - Psychiatric Psychiatric: Denies anxiety, Denies depression - Endocrine Endocrine: Reports weight change, Denies fatigue - Hematologic/Lymphatic Comment: none - Allergic/Immunologic Allergic/Immunologic: Reports as per HPI, Reports seasonal allergies Objective - Vital Signs Vital signs: Vital Signs Temp 97.5 F L 04/01/22 13:47 Pulse 84 04/01/22 13:47 Resp 16 04/01/22 13:47 BP 132/89 04/01/22 13:47 Pulse Ox 97 04/01/22 13:47 FiO2 Intake & Output 03/31/22 04/01/22 04/01/22 18:59 06:59 18:59 Weight 54.431 kg - Constitutional General appearance: Present: cooperative - EENT Eyes: Present: EOMI ENT: Present: hearing grossly normal - Neck Neck: Present: normal ROM - Respiratory Respiratory: bilateral: CTA - Cardiovascular Rhythm: regular Heart sounds: normal: S1, S2 - Gastrointestinal General gastrointestinal: Present: soft - Integumentary Integumentary: Present: normal turgor - Musculoskeletal Musculoskeletal: Present: gait normal - Psychiatric Psychiatric: Present: A&O x's 3, appropriate affect, intact judgment & insight - Additional findings Additional findings: Breast Exam: BRA: 34B inspection: small Amount of dimpling at the left breast biopsy site Palpation: Right breast: Multi-positional exam fibrocystic changes no dominant masses or nodules of concern Right axilla: No adenopathy of concern Left breast: Multi-positional exam fibrocystic changes no dominant masses or nodules of concern, small amount of dimpling at the needle biopsy site this is not worrisome Left axilla: No adenopathy of concern Assessment and Plan Assessment: Impression: Fibrocystic breast changes Plan: Bilateral mammogram 12 months CC: Dr. Vargas
== END ==
LOC: WWCWWP 13:33
PROVIDERS: ATTEND Surgery
DX: Z85.3 Personal history of malignant neoplasm of breast (principal); Z88.1 Allergy status to other antibiotic agents; Z88.2 Allergy status to sulfonamides; Z88.8 Allergy status to other drugs, medicaments and biological substances

== ENCOUNTER → 2023-06-29 | Outpatient (CLI) | payer BC ==
--- NOTE | 2023-07-03 10:31 | MM ---
Reason for Exam: Screening (asymptomatic). Last mammogram was performed 1 year(s) and 3 month(s) ago. Patient History: Menarche at age 15. First Full-Term at age 24. Postmenopausal. 03/26/2021, Benign Core Biopsy on the left side. Maternal aunt had breast cancer, age 58. Risk Values: Therese 5 year model risk: 1.2%. NCI Lifetime model risk: 10.8%. Prior Study Comparison: 03/08/2021 Left Diagnostic Mammogram, [facility]. 09/24/2021 Left MG 3D diag mammo w/cad LT, [facility]. 03/28/2022 Bilateral MG 3D screening mammo w/cad, [facility]. Tissue Density: The breasts are heterogeneously dense, which may obscure small masses. Findings: Analyzed By CAD. There is no suspicious group of microcalcifications or new suspicious mass in either breast. Postbiopsy changes noted on the left. Overall Assessment: Benign, BI-RAD 2 Management: Screening Mammogram of both breasts in 1 year. . Patient should continue monthly self-breast exams. A clinical breast exam by your physician is recommended on an annual basis. This exam should not preclude additional follow-up of suspicious palpable abnormalities. Note on Therese scores and lifetime risk: 1. A Therese score greater than 3% is considered moderate risk. If this is the case, consider specialist referral to assess eligibility for a risk reducing agent. 2. If overall lifetime risk for the development of breast cancer is 20% or higher, the patient may qualify for future screening with alternating mammogram and breast MRI. Electronically signed and approved by: Mino Dover M.D. Radiologis
== END | disposition home or self-care (01) ==
LOC: RADMAMWWP 10:05
PROVIDERS: ATTEND Surgery
DX: Z12.31 Encounter for screening mammogram for malignant neoplasm of breast (principal); Z78.0 Asymptomatic menopausal state; Z80.3 Family history of malignant neoplasm of breast
CPT/HCPCS: 77063; 77067

== ENCOUNTER → 2023-08-02 | Outpatient (CLI) | payer BC ==
[2023-08-03 03:44] LABS: Clam IgE <0.10 kU/L; Scallop IgE <0.10 kU/L
[2023-08-03 14:27] LABS: Codfish IgE <0.10 kU/L (<0.10); Codfish IgE Class CLASS 0; Crab IgE <0.10 kU/L (<0.10); Crab IgE Class CLASS 0; Lobster IgE <0.10 kU/L (<0.10); Lobster IgE Class CLASS 0; Mussel IgE <0.10 kU/L (<0.10); Mussel IgE Class CLASS 0; Salmon IgE <0.10 kU/L (<0.10); Salmon IgE Class CLASS 0; Shrimp IgE <0.10 kU/L (<0.10); Shrimp IgE Class CLASS 0; Tuna IgE <0.10 kU/L (<0.10); Tuna IgE Class CLASS 0
== END | disposition home or self-care (01) ==
LOC: LABWHC1 15:00
PROVIDERS: ATTEND Internal Medicine
DX: T78.3XXA Angioneurotic edema, initial encounter (principal); R11.10 Vomiting, unspecified; X58.XXXA Exposure to other specified factors, initial encounter
CPT/HCPCS: 36415; 86003

== ENCOUNTER → 2023-08-16 | Outpatient (CLI) | payer BC ==
[2023-08-17 14:02] LABS: Honeybee Venom IgE Class CLASS 0; Paper Wasp IgE <0.10 kU/L (<0.10); Paper Wasp IgE Class CLASS 0; White-Faced Hornet IgE <0.10 kU/L (<0.10); White-Faced Hornet IgE Class CLASS 0; Yellow Jacket IgE Class CLASS 0
[2023-08-17 14:03] LABS: Yellow Hornet IgE <0.10 kU/L (<0.10); Yellow Hornet IgE Class CLASS 0
== END | disposition home or self-care (01) ==
LOC: LABWHC1 16:11
PROVIDERS: ATTEND Internal Medicine
DX: T78.3XXA Angioneurotic edema, initial encounter (principal)
CPT/HCPCS: 36415; 86003

== ENCOUNTER 2024-01-31 18:18 | Emergency (ER) | payer BC ==
--- NOTE | 2024-01-31 18:52 | ED ---
Chest Pain HPI - General Chief Complaint: Chest Pain Stated Complaint: Abnormal labs Time Seen by Provider: 01/31/24 18:29 Source: patient, RN notes reviewed Mode of arrival: ambulatory Limitations: no limitations - History of Present Illness Initial Comments: This is a 49-year-old female sent by Dr. Gutierrez for chest pressure during a doctor's appointment. Patient states she began feeling left-sided chest pressure was prior to her appointment with Dr. Gutierrez that resolved as the appointment ended. Patient mention pressure during her appointment with subsequent ECG showing downward deflection in septal leads, concerning Dr. Gutierrez enough to send patient to ER for further evaluation. Patient endorses history of frequent PVCs requiring Holter monitor but otherwise denies history of AMI. Patient endorses history of anxiety. Patient denies associated dyspnea, dizziness, radiating pain, pallor, sweating, N/V. MD Complaint: chest pain Onset/Timin -: hour(s) Onset: during rest Pain Location: left chest Pain Radiation: none Quality: tightness Consistency: now resolved Context: other (During doctors appointment) Treatments Prior to Arrival: none - Related Data Home Medications Medication Instructions Recorded Confirmed No Known Home Medications 09/14/16 04/01/22 Allergies Allergy/AdvReac Type Severity Reaction Status Date / Time cephalexin [From Keflex] Allergy Unknown Verified 01/31/24 18:27 ofloxacin Allergy Unknown Verified 01/31/24 18:27 Sulfa (Sulfonamide Allergy Unknown Verified 01/31/24 18:27 Antibiotics) sulfamethoxazole Allergy Unknown Verified 01/31/24 18:27 [From Bactrim] trimethoprim [From Bactrim] Allergy Unknown Verified 01/31/24 18:27 nitrofurantoin AdvReac Unknown Verified 01/31/24 18:27 [From Macrobid] Review of Systems ROS Statement: Those systems with pertinent positive or pertinent negative responses have been documented in the HPI. ROS Other: All systems not noted in ROS Statement are negative. Past Medical History Past Medical History: No Reported History History of Any Multi-Drug Resistant Organisms: None Reported Past Surgical History: Appendectomy Additional Past Anesthesia/Blood Transfusion Reaction / Comment(s): difficulty waking up after surgery Past Psychological History: No Psychological Hx Reported Smoking Status: Never smoker Past Alcohol Use History: Rare Past Drug Use History: None Reported General Exam Limitations: no limitations General appearance: alert, in no apparent distress Head exam: Present: atraumatic, normocephalic, normal inspection Eye exam: Present: normal appearance, PERRL, EOMI. Absent: scleral icterus, conjunctival injection, periorbital swelling ENT exam: Present: normal exam, mucous membranes moist Neck exam: Present: normal inspection. Absent: tenderness, meningismus, lymphadenopathy Respiratory exam: Present: normal lung sounds bilaterally. Absent: respiratory distress, wheezes, rales, rhonchi, stridor Cardiovascular Exam: Present: regular rate, normal rhythm, normal heart sounds. Absent: systolic murmur, diastolic murmur, rubs, gallop, clicks GI/Abdominal exam: Present: soft, normal bowel sounds. Absent: distended, tenderness, guarding, rebound, rigid Extremities exam: Present: normal inspection, full ROM, normal capillary refill, other (Bilateral posterior tibialis pulse +2.). Absent: tenderness, pedal edema, joint swelling, calf tenderness Back exam: Present: normal inspection Neurological exam: Present: alert, oriented X3, CN II-XII intact Psychiatric exam: Present: normal affect, normal mood Skin exam: Present: warm, dry, intact, normal color. Absent: rash Course Vital Signs 01/31/24 18:24 Temperature 98.2 F Pulse Rate 92 Respiratory 20 Rate Blood Pressure 167/88 O2 Sat by Pulse 99 Oximetry Chest Pain MDM - MDM Was pt. sent in by a medical professional or institution (JASPER Truong, PHYSICAL EDUCATION SPECIALIST, urgent care, hospital, or usp...) When possible be specific @ -[No] Did you speak to anyone other than the patient for history (EMS, parent, family, police, friend...)? What history was obtained from this source @ -[No] Did you review nursing and triage notes (agree or disagree)? Why? @ -[I reviewed and agree with nursing and triage notes] Were old charts reviewed (outside hosp., previous admission, EMS record, old EKG, old radiological studies, urgent care reports/EKG's, usp records)? Report findings @ -[No old charts were reviewed] Differential Diagnosis (chest pain, altered mental status, abdominal pain women, abdominal pain men, vaginal bleeding, weakness, fever, dyspnea, syncope, headache, dizziness, GI bleed, back pain, seizure, CVA, palpatations, mental health, musculoskeletal)? @ -[not applicable] EKG interpreted by me (3pts min.). @ -Sinus rhythm without ST changes or T wave inversion. Ventricular rate 77 bpm, HI 149 ms, QRS duration 75 ms, QTc 399 ms X-rays interpreted by me (1pt min.). @ -[None done] CT interpreted by me (1pt min.). @ -[None done] U/S interpreted by me (1pt. min.). @ -[None done] What testing was considered but not performed or refused? (CT, X-rays, U/S, labs)? Why? @ -[None] What meds were considered but not given or refused? Why? @ -[None] Did you discuss the management of the patient with other professionals (professionals i.e. , PA, PHYSICAL EDUCATION SPECIALIST, lab, RT, psych nurse, clinical social work aide, type inspector, teacher, chief knowledge officer, major case detective)? Give summary @ -[No] Was smoking cessation discussed for >3mins.? @ -[No] Was critical care preformed (if so, how long)? @ -[No] Were there social determinants of health that impacted care today? How? (Homelessness, low income, unemployed, alcoholism, drug addiction, transportation, low edu. Level, literacy, decrease access to med. care, [place] [facility], rehab)? @ -[No] Was there de-escalation of care discussed even if they declined (Discuss DNR or withdrawal of care, Hospice)? DNR status @ -[No] What co-morbidities impacted this encounter? (DM, HTN, Smoking, COPD, CAD, Cancer, CVA, ARF, Chemo, Hep., AIDS, mental health diagnosis, sleep apnea, morbid obesity)? @ -[None] Was patient admitted / discharged? Hospital course, mention meds given and route, prescriptions, significant lab abnormalities, going to OR and other pertinent info. @ -[hospital course] Undiagnosed new problem with uncertain prognosis? @ -[No] Drug Therapy requiring intensive monitoring for toxicity (Heparin, Nitro, Insulin, Cardizem)? @ -[No] Were any procedures done? @ -[No] Diagnosis/symptom? @ -Angina, anxiety/stress Acute, or Chronic, or Acute on Chronic? @ -Acute Uncomplicated (without systemic symptoms) or Complicated (systemic symptoms)? @ -Uncomplicated Side effects of treatment? @ -[No] Exacerbation, Progression, or Severe Exacerbation? @ -[No] Poses a threat to life or bodily function? How? (Chest pain, [place], [place], pneumonia, PE, COPD, DKA, ARF, appy, cholecystitis, CVA, Diverticulitis, Homicidal, Suicidal, threat to staff... and all critical care pts) @ -[No] Disposition Clinical Impression: Anxiety, Angina at rest Disposition: HOME SELF-CARE Condition: Good Instructions (If sedation given, give patient instructions): Chest Pain (ED), Anxiety (ED) Is patient prescribed a controlled substance at d/c from ED?: No Referrals: Mino Faye MD [Primary Care Provider] - 1-2 days Noah Hanna MD [STAFF PHYSICIAN] - 1-2 days Time of Disposition: 20:01
[2024-01-31 19:04] LABS: Basophils % (A) 0 %; Eosinophils # (A) 0.1 k/uL (0-0.7); Eosinophils % (A) 1 %; HCT 41.6 % (34.0-46.0); HGB 14.2 gm/dL (11.4-16.0); Lymphocytes # (A) 2.6 k/uL (1.0-4.8); Lymphocytes % (A) 31 %; MCH 29.5 pg (25.0-35.0); MCHC 34.1 g/dL (31.0-37.0); MCV 86.7 fL (80.0-100.0); Mean Platelet Volume 7.2; Monocytes # (A) 0.4 k/uL (0-1.0); Monocytes % (A) 4 %; Neutrophils # (A) 5.3 k/uL (1.3-7.7); Neutrophils % (A) 62 %; Platelet Count 315 k/uL (150-450); RDW 12.2 % (11.5-15.5); WBC 8.6 k/uL (3.8-10.6)
[2024-01-31 19:19] LABS: ALT 19 U/L (4-34); African American GFR (CKD) >90 (>60 ml/min/1.73 sqM); Albumin 4.9 g/dL (3.5-5.0); Anion Gap 9 mmol/L; Blood Urea Nitrogen 13 mg/dL (7-17); Calcium 9.7 mg/dL (8.4-10.2); Carbon Dioxide 23 mmol/L (22-30); Chloride 103 mmol/L (98-107); Glucose 89 mg/dL (74-99); Non-African American GFR(CKD) >90 (>60 ml/min/1.73 sqM); Sodium 135 mmol/L (137-145); Total Bilirubin 0.8 mg/dL (0.2-1.3); Total Protein 8.2 g/dL (6.3-8.2)
[2024-01-31 19:22] LABS: AST 31 U/L (14-36); Alkaline Phosphatase 76 U/L (38-126); Magnesium 1.9 mg/dL (1.6-2.3); Potassium 3.8 mmol/L (3.5-5.1)
--- NOTE | 2024-01-31 19:22 | XR ---
EXAMINATION TYPE: XR chest 2V DATE OF EXAM: 01/31/2024 7:05 PM COMPARISON: None CLINICAL INDICATION: Female, 49 years old with history of Chest Pain; TECHNIQUE: XR chest 2V Frontal and lateral views of the chest. FINDINGS: Lungs/Pleura: There is no evidence of pleural effusion, focal consolidation, or pneumothorax. Pulmonary vascularity: Unremarkable. Heart/mediastinum: Cardiomediastinal silhouette is unremarkable. Musculoskeletal: No acute osseous pathology. IMPRESSION: No acute cardiopulmonary disease/process. [facility], , 01/31/2024 7:19 PM
[2024-01-31 19:56] LABS: INR 0.9 (<1.2)
[2024-01-31 19:57] LABS: Partial Thromboplastin Time 26.4 sec (22.0-30.0); Prothrombin Time 10.1 sec (10.0-12.5)
[2024-01-31 21:01] VITALS: BP 145/82; PULSE 74; RESP 18; TEMP 98
== END 2024-01-31 21:12 | disposition home or self-care (01) ==
LOC: EC 18:18
DX: I20.89 Other forms of angina pectoris (principal); F41.9 Anxiety disorder, unspecified; Z88.2 Allergy status to sulfonamides; Z88.1 Allergy status to other antibiotic agents; Z88.8 Allergy status to other drugs, medicaments and biological substances
CPT/HCPCS: 36415; 71046; 80053; 83735; 84484; 85025; 85379; 85610; 85730; 93005; 99285

== ENCOUNTER → 2024-07-03 | Outpatient (CLI) | payer BC ==
--- NOTE | 2024-07-03 08:11 | MM ---
Reason for Exam: Screening (asymptomatic). Last screening mammogram was performed 12 month(s) ago. Patient History: Menarche at age 15. First Full-Term at age 24. Postmenopausal. Patient has history of breast feeding. 03/26/2021, Benign Core Biopsy on the left side. Maternal aunt had breast cancer, age 58. Risk Values: Therese 5 year model risk: 1.2%. NCI Lifetime model risk: 10.6%. Prior Study Comparison: 06/16/2017 Right Diagnostic Mammogram, [facility]. 06/13/2018 Bilateral Screening Mammogram, [facility]. 01/28/2020 Bilateral Screening Mammogram, [facility]. 03/01/2021 Bilateral Screening Mammogram, [facility]. 03/08/2021 Left Diagnostic Mammogram, [facility]. 09/24/2021 Left MG 3D diag mammo w/cad LT, [facility]. 03/28/2022 Bilateral MG 3D screening mammo w/cad, [facility]. 06/29/2023 Bilateral MG 3D screening mammo w/cad, [facility]. Tissue Density: The breasts are heterogeneously dense, which may obscure small masses. Findings: Mammotome biopsy clip in the left breast is redemonstrated. There is no suspicious new group of microcalcifications or new suspicious mass in either breast. Overall Assessment: Benign, BI-RAD 2 Management: Screening Mammogram of both breasts in 1 year. Some advise annual bilateral breast ultrasound surveillance in patient with background dense tissue. Patient should continue monthly self-breast exams. A clinical breast exam by your physician is recommended on an annual basis. This exam should not preclude additional follow-up of suspicious palpable abnormalities. Note on Therese scores and lifetime risk: 1. A Therese score greater than 3% is considered moderate risk. If this is the case, consider specialist referral to assess eligibility for a risk reducing agent. 2. If overall lifetime risk for the development of breast cancer is 20% or higher, the patient may qualify for future screening with alternating mammogram and breast MRI. [facility], , 07/03/2024 8:08 AM. Electronically signed and approved by: Eder Quezada M.D.
== END | disposition home or self-care (01) ==
LOC: RADMAMWWP 07:43
PROVIDERS: ATTEND Obstetrics & Gynecology
DX: Z12.31 Encounter for screening mammogram for malignant neoplasm of breast (principal); R92.333 Mammographic heterogeneous density, bilateral breasts; Z78.0 Asymptomatic menopausal state; Z80.3 Family history of malignant neoplasm of breast
CPT/HCPCS: 77063; 77067